=== PATIENT | female | born 1935 | race Caucasian/White ===

== ENCOUNTER 2016-08-23 12:22 | Emergency (ER) | payer MEDICARE, OTHER ==
[~2016-08-23] VITALS: Ht 160 cm; Wt 49.1 kg
[~2016-08-23 12:22] MED LIST: ACET-2766 PO; FLUO20CA25 PO; LACT1CAP65 PO; LORA10TA7 PO; MELA3TAB46 PO; MULT-56 PO; POTA10CA42 PO; PRAV20TA2 PO; PROC10TA PO; RANI150C4 PO; [UNRECOGNIZED DRUG - CODE] PO; [UNRECOGNIZED DRUG - CODE] PO; calcium chews PO
[2016-08-23 12:35] VITALS: BP 169/83; RESP 18; O2SAT 99
--- NOTE | 2016-08-23 13:49 | ED.REPORT ---
HPI-General Illness Date of Service Aug 23, 2016 ED Provider: Kuldip Mooney MD The patient is an 80 year old female with history of breast cancer s/p lumpectomy, hypertension, hyperlipidemia, GI bleed, and uterine cancer, who was brought to the emergency department by her daughter for evaluation. This morning the patient was eating scrambled eggs when she started to choke. Her daughter completed the Heimlich maneuver and the patient was able to cough the food up. This is the second episode she has had in the last 4 days. The patient denies numbness, weakness, facial droop, speech changes, visual changes, confusion or problem walking. Nursing Notes Stated Complaint: CHOKED THIS AM/WANTS TO BE CHECKED Chief Complaint: ENT & Mouth Nursing Notes Reviewed: Yes Allergies: Coded Allergies: MARIE Inhibitors (Verified Allergy, Severe, ANGIOEDEMA, 04/06/14) hydromorphone HCl (Verified Allergy, Intermediate, Nightmares, 04/06/14) metronidazole (Verified Allergy, Intermediate, numb feet, 04/06/14) Scheduled ([calcium chews]) 2 TAB PO DAILY Fluoxetine (Fluoxetine) 20 Mg Capsule 20 MG PO DAILY Loratadine (Loratadine) 10 Mg Tablet 10 MG PO DAILY Melatonin (Melatonin) 3 Mg Tab.rapdis 3 MG PO HS Nitrofurantoin Macrocrystal (Macrodantin) 100 Mg Cap 100 MG PO QPM Potassium Chloride (Potassium Chloride) 10 Meq Capsule.er 10 MEQ PO DAILY TAKE WITH FOOD Pravastatin (Pravastatin) 20 Mg Tablet 20 MG PO DAILY Ranitidine (Ranitidine) 150 Mg Capsule 150 MG PO BID Scheduled PRN Acetaminophen (Tylenol Arthritis) 650 Mg Tablet.er 650 MG PO BID PRN PRN For Pain Meclizine (Meclizine) 12.5 Mg Tablet 12.5 MG PO TID PRN PRN vertigo Prochlorperazine Maleate (Prochlorperazine) 10 Mg Tablet 10 MG PO Q8 PRN PRN For Nausea/Vomiting Miscellaneous Medications Lactobacillus Acidophilus (Probiotic) 1 Each Capsule 1 EACH PO Multivitamin (Daily Vitamin) 1 Each Tablet 1 EACH PO General Time Seen by MD: 13:48 Chief Complaint Other (evaluation) Hx Obtained From: Patient, Daughter Arrived By: Walk-in Sudden in Onset?: Yes Onset Occurred: 5 - 8 hours ago Symptom Duration: 1 - 15 minutes Severity: Current: No pain currently Severity: Maximum: Moderate Recent Healthcare: No recent doctor visit, No recent hospitalization Similar Sx Previous: No Past Medical History Past Medical History 1. History of breast cancer with right lumpectomy. 2. History of hypertension. 3. History of hyperlipidemia. 4. History of depression. 5. GI bleed 6. Anemia 7. Uterine cancer s/p total hysterectomy Past Surgical History Right lumpectomy Bilateral oophorectomy with total hysterectomy and partial omentectomy Family History Noncontributory Smoking History Unknown if Ever Smoker Social History Drug Use: Denies drug use Other Social History: Good social support, Local resident Ambulatory Status Independent Review of Systems +choking episode Full Review of Systems GI: Reports: Dysphagia Neurologic: Denies: Confusion, Focal weakness, Numbness, Problem walking, Slurred speech, Unable to speak, Vision change, Weakness Complete sys rev & neg: except as marked. Physical Exam Vital Signs Vital Signs Date Time Temp Pulse Resp B/P Pulse Ox O2 Delivery O2 Flow Rate FiO2 08/23/16 12:35 36.1 74 18 169/83 99 Room Air Initial VS: Reviewed Head / Eyes: Atraumatic, Normocephalic, PERRL Cardiovascular: Regular rate & rhythm, Heart sounds normal, Intact distal pulses Abdomen / GI: Soft, Non-tender, No guarding, No rebound, No distention Lymphatic: No lymphadenopathy Extremities: Vascular intact, Neuro intact, No swelling, No tenderness Skin: Warm, Dry, No cyanosis Psychiatric: Mood/affect normal, Behavior normal, Normal thought content General/Constitutional: Awake, Alert, No acute distress, Cooperative ENT: Atraumatic, Airway patent, Mucous membranes moist, Pharynx NL No drooling. Neck: Atraumatic, Supple, No tracheal deviation Respiratory / Chest: Atraumatic, Breath sounds NL, Breath sounds = bilat, No respiratory distress, No rales, No rhonchi, No wheezing, No stridor She has a heart monitoring patch about her left anterior chest wall. Neurologic: Oriented X3, Speech NL, No motor deficits, No sensory deficits, CN II - XII intact, Cerebellar NL, Memory NL No lateralizing neurologic findings. Speech is fluent. No muffled speech. Interpretation & Diagnostics X-Ray Chest Interpretation Chest Xray Interpretation: No acute disease Interpretation / Wet Read by: Interpret - Radiologist, Discussed w radiologist X-Ray Interpretation Xray Interpretation: No acute disease Study Performed: Soft tissue neck Interpretation / Wet Read by: Interpret - Radiologist, Discussed w radiologist Re-Eval/Medical Decision Med Decision/Clinical Course The patient is an 80 year old female with history of breast cancer s/p lumpectomy, hypertension, hyperlipidemia, GI bleed, and uterine cancer, who was brought to the emergency department by her daughter for evaluation. This morning the patient was eating scrambled eggs when she started to choke. Her daughter completed the Heimlich maneuver and the patient was able to cough the food up. This is the second episode she has had in the last 4 days. The patient denies numbness, weakness, facial droop, speech changes, visual changes, confusion or problem walking. Here in the emergency department the patient is afebrile stable vital signs and in no apparent distress. Patient has no stridor, difficulty swallowing secretions or evidence of otitis, retropharyngeal abscess or other acute airway obstruction. Chest x-ray and soft tissue neck x-ray are negative for foreign body or evidence of acute trauma to ribs/pneumothorax. Swallow evaluation shows significant dysphagia, recommends full liquid diet with modified outpatient barium swallow study tomorrow. At this time underlying cause of patient's dysphagia is unclear. Presentation of convincing for acute ischemic stroke. I do not feel that workup for stroke/ TIA is indicated at this time. Mechanical etiology such as achalasia, esophageal strictures or esophageal web remains a possibility. She has been arranged to have a barium swallow eval tomorrow and will adhere to a liquid diet in the meantime. She has been referred to GI for additional workup and consultation. Follow precautions were reviewed in detail with the patient as well as her daughter and they verbalized understanding and agreement with the plan. She was discharged in good condition. Source of Hx: Old records, Family Summary of Info: ECHOCARDIOGRAM Interpretation Summary 1) Normal left ventricular thickness, size, wall motion, and systolic function (EF 60-65%). 2) Normal right ventricular size and function. 3) Severe left atrial enlargement present. 4) Moderately dilated left atrium. 5) Moderate calcific aortic stenosis (mean gradient 19mmHg, calculated valve area 0.9cm2, and severity ratio 0.29) present. 6) Heavily calcific mitral valve with minimal mitral stenosis (mean transmitral inflow gradient is 4mmHg). 7) Compared to the Echo done 09/27/2015, aortic stenosis has progressed slightly but remains in moderate range on the current study. Reading Physician:04:30 PM Time of Eval: 15:37 Re-Evaluation/Progress Note: Discussed plan for swallow evaluation and discharge. Time of Eval: 16:58 Re-Evaluation/Progress Note: Rechecked the patient. Discussed results, diagnosis, and plan for discharge with close outpatient followup. All questions were addressed. Counseled Regarding: Diagnosis, Need for follow-up, When/why to return to ED Discharge & Departure Primary Impression: Dysphagia Dysphagia type: unspecified Qualified Code: R13.10 - Dysphagia, unspecified Disposition: Home Discharge Condition All VS Reviewed: Yes Condition: Stable Additional Instructions: Thank you for seeking care at the emergency room. Our primary goal today in the ED was to evaluate you for any life-threatening conditions. Your evaluation was reassuring. You will need to be on a full liquid diet until you are further evaluated. You have an appointment tomorrow to have a barium swallow test. You will need to followup with a drag out man for further evaluation. We have given you a referral to Dr. Membreno. Call his office today or tomorrow to schedule an appointment. You should return to the ED immediately if you develop fevers, vomiting, shortness of breath, chest pain, lightheadedness, weakness or any other concerning signs or symptoms. Thank you for letting us partake in your care today. Referrals: Lindsey Saleh MD (PCP) Dexter Membreno MD Attestation Portions of this note were transcribed by Nerissa Almanza. I, Dr. Mooney personally performed the history, physical exam and medical decision-making; I reviewed and confirmed the accuracy of the information in the transcribed note. Signed by: Clarence Mccabe, 08/23/2016 at 1705. copies to: Dexter Membreno MD; Lindsey Saleh MD, Beck O MD Aug 23, 2016 13:49 Nerissa Almanza Aug 23, 2016 14:09
--- NOTE | 2016-08-23 15:27 | DRSVH ---
PROCEDURE: X-RAY CHEST, TWO VIEWS ([id number]) INDICATIONS: choking TECHNIQUE: 2 views of the chest were acquired. COMPARISON: [facility], CR, CHEST 2VW, 04/23/2013, 15:46. [facility], CR, C HEST 1VW (PORTABLE), 03/24/2013, 16:06. FINDINGS: Surgical changes and devices: Some form of monitoring device overlies the left chest. Surgical clips indicate likelihood of prior breast carcinoma.. Lungs and pleura: No pleural effusions or pneumothorax. Lungs are clear except for mild chronic int erstitial prominence. Mediastinum: Mediastinal contours are normal. Heart size is normal. Bones and chest wall: No suspicious bony abnormalities. Soft tissues appear unremarkable. IMPRESSION: Mild interstitial prominence, stable over time. Presumed prior breast carcinoma surgery on the left. No aspiration seen. Dictated by: Mitchell Faye M.D. on 08/23/2016 at 15:25 Approved by: Mitchell Faye M.D. on 08/23/2016 at 15:26
--- NOTE | 2016-08-23 15:34 | DRSVH ---
PROCEDURE: X-RAY NECK SOFT TISSUE ([id number]) INDICATIONS: choking TECHNIQUE: 2 views of the neck were acquired. COMPARISON: None. FINDINGS: Airway: The airway appears patent. Soft tissues: Prevertebral soft tissues are normal in thickness. The aryepiglottic folds appear nor mal but the epiglottis appears abnormally thickened at 8 mm.. No soft tissue gas. Bones: No suspicious bony lesions. Visualized cervical spine is normally aligned. IMPRESSION: The epiglottis is at the threshold for raising concern for presence of epiglottitis. The measurement of the epiglottic thickness can be overestimated if the patient is not perfectly lateral in position, however. Moderately severe degenerative disc disease over the middle and lower thirds of the cervical spine but no trauma found. No foreign body seen. Findings discussed with the emergency room physician personally. Her signs and symptoms do not suppo rt diagnosis of epiglottitis, reportedly. Dictated by: Mitchell Faye M.D. on 08/23/2016 at 15:26 Approved by: Mitchell Faye M.D. on 08/23/2016 at 15:32
--- NOTE | 2016-08-23 17:16 | NUR ---
Evaluation completed. Please go to "Notes" then click on "Assessments and Notes" (bottom left corner of screen). Then select appropriate discipline tab on top of screen.
[2016-11-17] MEDS ORDERED: METO-272 PO (14:47)
[2016-11-17] MEDS ORDERED: WARF3TAB7 PO (14:47)
[2016-11-17] MEDS ORDERED: BIOT5CAP9 PO (14:47)
[2016-11-17] MEDS ORDERED: MIRTAZAPINE PO (14:47)
[2016-11-17] MEDS ORDERED: FLUT9.9S NS (14:47)
== END 2016-08-23 17:10 | disposition home or self-care (01) ==
LOC: SED 12:22
DX: R13.10 Dysphagia, unspecified (principal); Z88.1 Allergy status to other antibiotic agents; Z88.5 Allergy status to narcotic agent; Z88.8 Allergy status to other drugs, medicaments and biological substances